=== PATIENT | male | born 2000 | race Caucasian/White ===

== ENCOUNTER 2019-02-09 16:09 | Emergency (ER) | payer OTHER ==
[~2019-02-09] VITALS: Ht 195.6 cm; Wt 72.6 kg
[2019-02-09 16:29] VITALS: BP 132/67
[2019-02-09] MEDS ORDERED: ORPHENADRINE CITRATE 60 MG/2 ML VIAL. IM ONE (17:00)
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
[2019-02-09] MEDS ORDERED: ORPH100T PO (19:09)
== END 2019-02-09 19:25 | disposition home or self-care (01) ==
LOC: ER 16:09
DX: S13.4XXA Sprain of ligaments of cervical spine, initial encounter (principal); R51 Headache; F32.9 Major depressive disorder, single episode, unspecified; V43.62XA Car passenger injured in collision with other type car in traffic accident, initial encounter; Y93.89 Activity, other specified; Y92.410 Unspecified street and highway as the place of occurrence of the external cause; Y99.8 Other external cause status
CPT/HCPCS: 70450; 72125; 96372; 99284; J2360

== ENCOUNTER 2020-10-13 22:25 | Emergency (ER) | payer OTHER ==
[2020-10-13 22:25] VITALS: BP 128/37
[~2020-10-13 22:25] MED LIST: ORPH100T PO
== END 2020-10-14 01:30 | disposition left against medical advice (07) ==
LOC: ER 22:25
DX: M25.531 Pain in right wrist (principal); Z53.21 Procedure and treatment not carried out due to patient leaving prior to being seen by health care provider